=== PATIENT | male | born 1950 | race Caucasian/White ===

== ENCOUNTER 2019-02-01 21:19 | Observation (INO) ==
[2019-02-01] MEDS ORDERED: ONDANSETRON HCL/PF 2 MG/ML VIAL IV ONE (21:26)
--- NOTE | 2019-02-01 21:34 | ERNOTE ---
Abdominal HPI - General Chief Complaint: Abdominal Pain Time Seen by Provider: 02/01/19 21:19 Source: patient Exam Limitations: no limitations - Immun/Allergies/Home Medications Immunizatons: IMMUNIZATION HX Immunizations Up to Date Yes History of Influenza Vaccine No Hx Pneumococcal Vaccination No Allergies/Adverse Reactions: Allergies No Known Allergies Allergy (Unverified 02/01/19 21:29) Home Medications: HOME MEDICATIONS NK 02/01/19 [Last Taken Unknown] - History of Present Illness Narrative: Patient was working on an engine outside when he started to not feel well, felt dizzy, started to vomit and complains of abdominal pain patient is hyperventilating and unable/unwilling to give further history at this time Date (Duration): 02/01/19 Time (Timing): 20:30 Review of Systems - Review of Systems Constitutional: Absent: recent illness, fever ENT: Absent: nose congestion, sore throat Respiratory: Present: shortness of breath Cardiology: Absent: chest pain Gastrointestinal/Abdominal: Present: nausea, vomiting, abdominal pain. Absent: diarrhea Genitourinary: Present: no symptoms reported Musculoskeletal: Absent: back pain Neurological: Present: See HPI, dizziness/light-headedness. Absent: headache Medical History (Updated 02/02/19 @ 01:06 by Columba Jane MD) No pertinent family history Staph infection Surgical History: Surgical History (Updated 02/02/19 @ 01:06 by Columba Jane MD) History of ear surgery Hx of hand surgery Social History: Preferred Language Georgian Do you have any adventism or No cultural preference? Smoking Status Current every day smoker Have you smoked in the past 12 Yes months Do you dip or chew tobacco No Alcohol Use none Drug Use none No Social History Section defined Physical Exam - Physical Exam General Appearance: Present: wd/wn, alert, mild distress, anxious, other - unkept Head Exam: Present: normal inspection Eye Exam: Normal inspection: bilateral, PERRL: bilateral, EOMI: bilateral Ears, Nose, Throat: Present: normal ENT inspection, normal pharynx Neck: Present: normal inspection, nontender Respiratory: Present: no respiratory distress, normal breath sounds, no accessory muscle use, lungs clear Cardiovascular/Chest: Present: regular rate, rhythm, no murmur Gastrointestinal/Abdominal: Present: tenderness - diffusely Extremity Exam: Present: no edema Neurological Exam: Present: alert, no motor/sensory deficits Skin Exam: Present: normal color, warm/dry Progress - Results and Orders Patient's Lab Results:: I have reviewed the patient's lab results. - Vital Signs Patient's Vital Signs:: I have reviewed the patient's vital signs. Vital Signs: Vital Signs 02/01/19 21:24 Temperature 36.5 C Pulse Rate 88 Respiratory Rate 18 Blood Pressure 181/124 H O2 Sat by Pulse Oximetry 100 - EKG EKG #1 EKG: NSR, nonspecific ST T wave changes, other - no acute changes EKG read: Interp. by me - X-Ray X-Ray #1 X-Ray: abdomen - moderate fecal retention Interpretation: Reviewed by me - Progress/Reassessment Chief Complaint: Abdominal Pain Progress Note-Subjective: 02/01/19 22:50 patient calm and cooperative now states that he was working on an engine when he started to get suddenly dizzy/everything spinning and started to vomit he was unable to walk and crawled back to the house and his family brought him in. He thinks the abdominal pain is just from vomiting he is feeling much better now, no abdominal pain, no vomiting no dizziness with moving around and sitting up in bed neuro exam normal at this point he has not seen a doctor in over 20 years discussed labs with patient and family 02/02/19 00:15 patient calm, resting in bed, now admits to using meth 1-2 days ago second troponin slightly lower 02/02/19 00:20 discussed with ramon Sloan to admit for observation for acute renal failure and elevated troponin Departure Clinical Impression: Elevated troponin, Methamphetamine use Acute renal failure Qualifiers: Acute renal failure type: unspecified Qualified Code(s): N17.9 - Acute kidney failure, unspecified - Departure Disposition: Still a patient Condition: Stable
[2019-02-01 21:49] LABS: Hematocrit 41.5 % (42.0-52.0); Mean Cell Volume 87.7 fl (78-100); Mean Corpuscular Hemoglobin 29.6 pg (27-31); Mean Corpuscular Hgb Conc 33.7 g/dl (32-36); Mean Platelet Volume 8.8 fl (8-11.3); Neutrophil # 5.6 K/mm3 (1.3-6.0); Neutrophil % 57.4 % (42-75.0); Platelet Count 325 K/mm3 (150-450); Red Blood Count 4.73 M/mm3 (4.7-6.0); Red Cell Distribution Width 13.6 % (11.5-14.0); White Blood Count 9.8 K/mm3 (4.0-10.5)
[2019-02-01 22:07] LABS: ALT 22 U/L (19-67); AST 20 U/L (0-48); Albumin * 3.9 gm/dl (3.4-5.0); Alkaline Phosphatase * 61 U/L (50-170); Amylase * 66 U/L (25-115); Anion Gap 20.1 mmol/L (6.8-13.8); BUN/Creatinine Ratio 12.1 (9.0-21.6); Bilirubin, Total 0.4 mg/dL (0.0-1.1); Blood Urea Nitrogen 37 mg/dL (6-23); Ca. Corrected For Albumin 9.6 mg/dL (8.4-10.2); Calcium * 9.8 mg/dL (7.9-10.9); Carbon Dioxide 21.8 mmol/L (24-32.6); Chloride 104 mmol/L (97-106); Glucose * 151 mg/dL (70-110); Lipase 179 U/L (73-393); Potassium 3.9 mmol/L (3.4-4.6); Sodium 142 mmol/L (132-142)
[2019-02-01 22:08] LABS: Troponin I 0.357 ng/mL (0.00-0.10)
[2019-02-01 22:23] LABS: Urine Bilirubin 1 mg/dl (NEGATIVE); Urine Ketone 5 mg/dL (NEGATIVE); Urine Nitrite Negative (NEGATIVE); Urine Protein 30 mg/dL (NEGATIVE); Urine Specific Gravity >=1.030 SP.GR. (1.005-1.030); Urine Urobilinogen Normal (NORMAL); Urine pH 5.5 pH (5.0-7.0)
[2019-02-01 22:36] LABS: Cocaine Ur Negative (NEGATIVE); Urine Barbiturate Negative (NEGATIVE); Urine Benzodiazepines Negative (NEGATIVE); Urine Opiates Negative (NEGATIVE); Urine PCP Negative (NEGATIVE); Urine THC Negative (NEGATIVE)
[2019-02-01 22:39] LABS: Urine Appearance Slightly Cloudy (CLEAR); Urine Blood 5 /ul (NEGATIVE); Urine Color Yellow
[2019-02-01 22:42] LABS: Urine Bacteria TRACE; Urine RBC None Seen /hpf (0-5); Urine Renal Epithelial Cell Few - 1+ /hpf; Urine WBC 0-5 /hpf (0-5)
[2019-02-01] MEDS ORDERED: NORMAL SALINE 1,000 ML IV ONE (23:06)
[2019-02-02] MEDS ORDERED: NORMAL SALINE 1,000 ML IV PRN (02:34)
[2019-02-02 06:27] LABS: Albumin * 3.1 gm/dl (3.4-5.0); Anion Gap 12.9 mmol/L (6.8-13.8); Bilirubin, Total 0.3 mg/dL (0.0-1.1); Ca. Corrected For Albumin 8.8 mg/dL (8.4-10.2); Calcium * 8.4 mg/dL (7.9-10.9); Potassium 3.9 mmol/L (3.4-4.6); Total Protein 6.5 gm/dL (6.2-8.2)
[2019-02-02 06:39] LABS: BUN/Creatinine Ratio 15.8 (9.0-21.6)
--- NOTE | 2019-02-02 12:01 | HPDIS ---
Chief Complaint - Chief Complaint Date of Service: 02/02/19 Time of Service: 09:00 Chief Complaint: chest pain, dyspnea, R/o AMI. History of Present Illness: Crow Hubbard is a 68-year-old male who presented to the emergency room with left chest pain, shortness of breath, and nausea and vomiting and diaphoresis. Symptoms had cleared by the time he arrived in the emergency room. Exam there showed normal EKG except for occasional PACs but the troponin was elevated at 0.319. I repeated the troponin this morning and it had risen to 0.355. The repeat EKG shows T wave inversions in 1, aVL, V5, and V6. This morning he is symptom-free. His EGFR was 43 on admission and with some rehydration has risen to 50 this morning. Crow does not Dr. much of any. His last admission was a few years ago for a staph infection of his hand which was treated and cleared. He takes no medications. He does smoke and admits to using methamphetamine 2 days prior to arrival. He states he does not use that routinely but only once or twice a year. There is a positive family history for cardiovascular disease. He does not have hypertension and does not know about his lipids. He is not diabetic. He is a Medicare age but is only signed up for Medicare part a is he did not understand the Medicare part B side or part D side. He may be eligible for a medical card and that is being investigated now. He is advised that he will need further study but will probably be better if this done after his insurance is in force. Medical History (Updated 02/02/19 @ 01:06 by Columba Jane MD) No pertinent family history Staph infection Surgical History: Surgical History (Updated 02/02/19 @ 01:06 by Columba Jane MD) History of ear surgery Hx of hand surgery Social History: Patient Lives/Resources With Spouse Utilized Preferred Language Belarusian Do you have any advent or Yes: adventist cultural preference? Smoking Status Current every day smoker Have you smoked in the past 12 Yes months Do you dip or chew tobacco No Alcohol Use none Drug Use none No Social History Section defined Review Of Systems (GEN) - Review of Systems Generalized/Overall Review: Present: Weakness EENTM: Present: No Symptoms Reported Respiratory: Present: Shortness of Breath Cardiac: Present: Chest Pain, Palpitations, Other - Diaphoresis Abdominal: Present: Nausea, Vomiting Genitourinary: Present: No Symptoms Reported Musculoskeletal: Present: No Symptoms Reported Neurological: Present: No Symptoms Reported Skin: Present: No Symptoms Reported - Other than diaphoresis Endocrine: Present: No Symptoms Reported Misc: All systems neg except as marked Immunizations: IMMUNIZATION HX Immunizations Up to Date Yes History of Influenza Vaccine No Hx Pneumococcal Vaccination No Allergies/Adverse Reactions: Allergies Allergy/AdvReac Type Severity Reaction Status Date / Time No Known Allergies Allergy Verified 02/02/19 02:11 Home Medications: HOME MEDICATIONS Nitroglycerin 0.4 mg SUBLINGUAL Q5MIN PRN #25 tab.subl 02/02/19 [Last Taken Unknown] Exam - Exam Vital Signs: Vital Signs - Last Taken Temp 36.5 C 02/02/19 11:08 Pulse 76 02/02/19 11:08 Resp 20 02/02/19 11:08 BP 183/86 H 02/02/19 11:08 Pulse Ox 100 02/02/19 11:08 Constitutional: Present: Alert, Oriented x3, Cooperative, Well developed, Well nourished, Looks Older than stated age ENT Exam: Present: normal ENT inspection, hearing grossly normal, pharynx normal, TMs normal Eye Exam: bilateral eye: normal inspection, PERRL, EOMI Neck: Present: non-tender, full range of motion, supple, normal inspection, trachea midline Breasts: Present: Exam deferred Respiratory: Present: chest non-tender, lungs clear Cardiovascular/Chest: Present: normal peripheral pulses, regular rate, rhythm, no chest tenderness, no edema, no gallop, no JVD, no murmur, no rub, extra beats Peripheral Pulses: carotid (R): 2+, carotid (L): 2+, dorsalis-pedis (R): 2+, dorsalis-pedis (L): 2+, radial (R): 2+, radial (L): 2+ Abdomen: Present: Normal bowel sounds, soft, nontender, nondistended, no rebound tenderness, no hepatospenomegaly, no masses /Rectal: Present: Exam deferred Extremity: Present: normal range of motion Skin Exam: Present: normal color Lymphatic: Present: no adenopathy 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 nml as tested Appearance: Present: appropriate appearance Eye contact: Present: cooperative Thoughts: Present: normal thought pattern, no apparent hallucination Diagnostic Studies: Abnormal Lab Results 02/01/19 02/01/19 02/01/19 Range/Units 21:52 21:52 22:16 Hct 41.5 L (42.0-52.0) % Immature Gran # (Auto) 0.04 H (0.000-0.0310) K/mm3 Sodium (132-142) mmol/L Plasma Sodium 143 H (130-142) mmol/L Chloride (97-106) mmol/L Carbon Dioxide 21.8 L (24-32.6) mmol/L Anion Gap 20.1 H (6.8-13.8) mmol/L BUN 37 H (6-23) mg/dL Creatinine 3.06 H (0.4-1.4) mg/dL Est GFR (Non-Af Amer) 22 L (60-130) mL/min Random Glucose 151 H (70-110) mg/dL Troponin I 0.357 H* (0.00-0.10) ng/mL Albumin (3.4-5.0) gm/dl Urine Protein 30 H (NEGATIVE) mg/dL Urine Blood 5 H (NEGATIVE) /ul Urine Bilirubin 1 H (NEGATIVE) mg/dl Ur Renal Epithelial Cell Few - 1+ H (NONE) /hpf Hyaline Casts 5-10 H (NONE) /LPF Urine Amphetamine (NEGATIVE) 02/01/19 02/01/19 02/02/19 Range/Units 22:16 23:58 06:00 Hct (42.0-52.0) % Immature Gran # (Auto) (0.000-0.0310) K/mm3 Sodium 145 H (132-142) mmol/L Plasma Sodium 145 H (130-142) mmol/L Chloride 109 H (97-106) mmol/L Carbon Dioxide (24-32.6) mmol/L Anion Gap (6.8-13.8) mmol/L BUN 35 H (6-23) mg/dL Creatinine 2.22 H D (0.4-1.4) mg/dL Est GFR (Non-Af Amer) 32 L D (60-130) mL/min Random Glucose (70-110) mg/dL Troponin I 0.319 H* (0.00-0.10) ng/mL Albumin 3.1 L (3.4-5.0) gm/dl Urine Protein (NEGATIVE) mg/dL Urine Blood (NEGATIVE) /ul Urine Bilirubin (NEGATIVE) mg/dl Ur Renal Epithelial Cell (NONE) /hpf Hyaline Casts (NONE) /LPF Urine Amphetamine Positive H (NEGATIVE) 02/02/19 Range/Units 06:00 Hct (42.0-52.0) % Immature Gran # (Auto) (0.000-0.0310) K/mm3 Sodium (132-142) mmol/L Plasma Sodium (130-142) mmol/L Chloride (97-106) mmol/L Carbon Dioxide (24-32.6) mmol/L Anion Gap (6.8-13.8) mmol/L BUN (6-23) mg/dL Creatinine (0.4-1.4) mg/dL Est GFR (Non-Af Amer) (60-130) mL/min Random Glucose (70-110) mg/dL Troponin I 0.352 H* (0.00-0.10) ng/mL Albumin (3.4-5.0) gm/dl Urine Protein (NEGATIVE) mg/dL Urine Blood (NEGATIVE) /ul Urine Bilirubin (NEGATIVE) mg/dl Ur Renal Epithelial Cell (NONE) /hpf Hyaline Casts (NONE) /LPF Urine Amphetamine (NEGATIVE) Laboratory Results WBC 9.8 K/mm3 (4.0-10.5) 02/01/19 21:52 RBC 4.73 M/mm3 (4.7-6.0) 02/01/19 21:52 Hgb 14.0 gm/dL (13.5-18.0) 02/01/19 21:52 Hct 41.5 % (42.0-52.0) L 02/01/19 21:52 MCV 87.7 fl (78-100) 02/01/19 21:52 MCH 29.6 pg (27-31) 02/01/19 21:52 MCHC 33.7 g/dl (32-36) 02/01/19 21:52 RDW 13.6 % (11.5-14.0) 02/01/19 21:52 Plt Count 325 K/mm3 (150-450) 02/01/19 21:52 MPV 8.8 fl (8-11.3) 02/01/19 21:52 Immature Gran % (Auto) 0.40 % (0.001-0.429) 02/01/19 21:52 Immature Gran # (Auto) 0.04 K/mm3 (0.000-0.0310) H 02/01/19 21:52 57.4 % (42-75.0) 02/01/19 21:52 32.1 % (20-51) 02/01/19 21:52 6.6 % (0.0-9) 02/01/19 21:52 2.9 % (0.0-3.0) 02/01/19 21:52 0.6 % (0.0-1.0) 02/01/19 21:52 Nucleated RBC % 0.0 k/mm3 (0-1) 02/01/19 21:52 5.6 K/mm3 (1.3-6.0) 02/01/19 21:52 3.15 k/mm3 (1.5-3.5) 02/01/19 21:52 0.7 k/mm3 (0.0-1.0) 02/01/19 21:52 0.3 k/mm3 (0.0-0.7) 02/01/19 21:52 Absolute Basophils 0.1 k/mm3 (0.0-0.1) 02/01/19 21:52 Sodium 145 mmol/L (132-142) H 02/02/19 06:00 145 mmol/L (130-142) H 02/02/19 06:00 Potassium 3.9 mmol/L (3.4-4.6) 02/02/19 06:00 Chloride 109 mmol/L (97-106) H 02/02/19 06:00 Carbon Dioxide 27.0 mmol/L (24-32.6) 02/02/19 06:00 12.9 mmol/L (6.8-13.8) 02/02/19 06:00 BUN 35 mg/dL (6-23) H 02/02/19 06:00 2.22 mg/dL (0.4-1.4) H D 02/02/19 06:00 Est GFR (Non-Af Amer) 32 mL/min (60-130) L D 02/02/19 06:00 15.8 (9.0-21.6) 02/02/19 06:00 107 mg/dL (70-110) 02/02/19 06:00 Calcium 8.4 mg/dL (7.9-10.9) 02/02/19 06:00 Calcium Adj for Albumin 8.8 mg/dL (8.4-10.2) 02/02/19 06:00 0.3 mg/dL (0.0-1.1) 02/02/19 06:00 AST 18 U/L (0-48) 02/02/19 06:00 ALT 20 U/L (19-67) 02/02/19 06:00 56 U/L (50-170) 02/02/19 06:00 0.352 ng/mL (0.00-0.10) H* 02/02/19 06:00 6.5 gm/dL (6.2-8.2) 02/02/19 06:00 3.1 gm/dl (3.4-5.0) L 02/02/19 06:00 Amylase 66 U/L (25-115) 02/01/19 21:52 179 U/L (73-393) 02/01/19 21:52 Yellow 02/01/19 22:16 Slightly cloudy (CLEAR) 02/01/19 22:16 5.5 pH (5.0-7.0) 02/01/19 22:16 Ur Specific [place] >=1.030 SP.GR. (1.005-1.030) 02/01/19 22:16 30 mg/dL (NEGATIVE) H 02/01/19 22:16 Negative mg/dL (NEGATIVE) 02/01/19 22:16 5 mg/dL (NEGATIVE) 02/01/19 22:16 5 /ul (NEGATIVE) H 02/01/19 22:16 Negative (NEGATIVE) 02/01/19 22:16 1 mg/dl (NEGATIVE) H 02/01/19 22:16 Negative (NEGATIVE) 02/01/19 22:16 Prot Sulfosalicylic Acd 1+ mg/dL (0) 02/01/19 22:16 Normal EU/dl (NORMAL) 02/01/19 22:16 Ur Leukocyte Esterase Negative /ul (NEGATIVE) 02/01/19 22:16 None seen /hpf (0-5) 02/01/19 22:16 0-5 /hpf (0-5) 02/01/19 22:16 Ur Epithelial Cells 0-5 /hpf (0-5) 02/01/19 22:16 Ur Renal Epithelial Cell Few - 1+ /hpf (NONE) H 02/01/19 22:16 Trace (NONE) 02/01/19 22:16 Hyaline Casts 5-10 /LPF (NONE) H 02/01/19 22:16 No culture indicated 02/01/19 22:16 Negative (NEGATIVE) 02/01/19 22:16 Negative (NEGATIVE) 02/01/19 22:16 Ur Phencyclidine Scrn Negative (NEGATIVE) 02/01/19 22:16 Urine Amphetamine Positive (NEGATIVE) H 02/01/19 22:16 U Benzodiazepines Scrn Negative (NEGATIVE) 02/01/19 22:16 Negative (NEGATIVE) 02/01/19 22:16 Negative (NEGATIVE) 02/01/19 22:16 Ethyl Alcohol Less than 3.0 mg/dL (0.0-10.0) 02/01/19 21:52 Assessment/Plan - Narrative Narrative: Crow probably had a non-STEMI cardiac event at home. My arrival in the emergency room most of the symptoms had resolved. Initial evaluation does not show ST segment changes consistent with an injury pattern but the troponin was elevated. The second troponin went down slightly to 0.319 but then went back up 0.355 this morning. There are subtle EKG changes including T wave inversion in leads I, aVL, V5, and V6 and nonspecific ST changes otherwise. He is in normal sinus rhythm with occasional PACs. This morning he is symptom-free and feels like he needs to get home to his who is a patient of mine and who has had a stroke recently. I will let him go home with instructions to return with any signs of chest discomfort. Also he is instructed not to smoke or use any more methamphetamine ever. He is to see me in the office in 1 week. I will arrange for a stress test to be done at that time. I will send him home with some nitroglycerin sublingual tabs for as needed use. - Assessment/Plan (1) Non-STEMI (non-ST elevated myocardial infarction) Problem: Acute (2) Acute renal failure Problem: Acute Qualifiers: Acute renal failure type: unspecified Qualified Code(s): N17.9 - Acute kidney failure, unspecified (3) Elevated troponin Problem: Acute (1) Non-STEMI (non-ST elevated myocardial infarction) Problem: Acute (2) Acute renal failure Problem: Acute Qualifiers: Acute renal failure type: unspecified Qualified Code(s): N17.9 - Acute kidney failure, unspecified (3) Elevated troponin Problem: Acute Description of Stay: Crow has been comfortable since admission. He is anxious about getting home to care for his . I have explained to him the lab and troponin findings as well as the EKG changes and it all suggest that he has had a non-STEMI event. However he is stable and there have been no significant dysrhythmias. Therefore he will be discharged home to follow with me in the office in 1 week at which time I will schedule a stress test. I will also send him home with nitroglycerin for as needed use. Procedures Performed: none Results and Findings: Lab Pending Results 02/01/19 21:52: WBC 9.8, RBC 4.73, Hgb 14.0, Hct 41.5 L, MCV 87.7, MCH 29.6, MCHC 33.7, RDW 13.6, Plt Count 325, MPV 8.8, Immature Gran % (Auto) 0.40, Immature Gran # (Auto) 0.04 H, Neutrophils % 57.4, Lymphocytes % 32.1, Monocytes % 6.6, Eosinophils % 2.9, Basophils % 0.6, Nucleated RBC % 0.0, Neutrophils # 5.6, Lymphocytes # 3.15, Monocytes # 0.7, Eosinophils # 0.3, Absolute Basophils 0.1 02/01/19 21:52: Sodium 142, Plasma Sodium 143 H, Potassium 3.9, Chloride 104, Carbon Dioxide 21.8 L, Anion Gap 20.1 H, BUN 37 H, Creatinine 3.06 H, Est GFR (Non-Af Amer) 22 L, BUN/Creatinine Ratio 12.1, Random Glucose 151 H, Calcium 9.8, Calcium Adj for Albumin 9.6, Total Bilirubin 0.4, AST 20, ALT 22, Alkaline Phosphatase 61, Troponin I 0.357 H*, Total Protein 8.0, Albumin 3.9, Amylase 66, Lipase 179, Ethyl Alcohol Less than 3.0 02/01/19 22:16: Urine Color Yellow, Urine Appearance Slightly cloudy, Urine pH 5.5, Ur Specific [place] >=1.030, Urine Protein 30 H, Urine Glucose (UA) Negative, Urine Ketones 5, Urine Blood 5 H, Urine Nitrate Negative, Urine Bilir ubin 1 H, Urine Ictotest Negative, Prot Sulfosalicylic Acd 1+, Urine Urobilinogen Normal, Ur Leukocyte Esterase Negative, Urine RBC None seen, Urine WBC 0-5, Ur Epithelial Cells 0-5, Ur Renal Epithelial Cell Few - 1+ H, Urine Bacteria Trace, Hyaline Casts 5-10 H, Urine Culture Comments No culture indicated 02/01/19 22:16: Urine Opiates Screen Negative, Barbiturate Screen Negative, Ur Phencyclidine Scrn Negative, Urine Amphetamine Positive H, U Benzodiazepines Scrn Negative, Urine Cocaine Screen Negative, Urine Marijuana (THC) Negative 02/01/19 23:58: Troponin I 0.319 H* 02/02/19 06:00: Sodium 145 H, Plasma Sodium 145 H, Potassium 3.9, Chloride 109 H, Carbon Dioxide 27.0, Anion Gap 12.9, BUN 35 H, Creatinine 2.22 H D, Est GFR (Non-Af Amer) 32 L D, BUN/Creatinine Ratio 15.8, Random Glucose 107, Calcium 8.4, Calcium Adj for Albumin 8.8, Total Bilirubin 0.3, AST 18, ALT 20, Alkaline Phosphatase 56, Total Protein 6.5, Albumin 3.1 L 02/02/19 06:00: Troponin I 0.352 H* Discharge Location: Home Disposition: Home self-care Condition: Stable Discharge Activity: Activity as tolerated - But I recommend being sedentary. Discharge Diet: Other - Heart healthy diet Additional Patient Instructions (free text): 1. Return to the emergency room if any further chest discomfort or unusual shortness of breath. 2. Stop smoking 3. Never used methamphetamine again. It is probably what precipitated this cardiac event. 4. Schedule to see me in my office in 1 week. 5. Try to get insurance and force so that more testing can be done without exposing him to a large [id number] expense 6.-Please make TCM appointment unless jail discharge, or if following up with outside provider. Thank you! Estephania @ [phone] or Krys at [phone]. Prescriptions (Any new or edited meds): Nitroglycerin 0.4 mg SUBLINGUAL Q5MIN PRN #25 tab.subl PRN Reason: Chest Pain Complete Home Medications List: Complete Home Medication List: Nitroglycerin 0.4 mg SUBLINGUAL Q5MIN PRN #25 tab.subl 02/02/19
[2019-02-02 13:31] VITALS: BP 166/84
== END 2019-02-02 13:55 | disposition home or self-care (01) ==
LOC: MS 21:19 → ER 21:19 → MS 02-02 01:21
PROVIDERS: ADMIT Family Medicine; ATTEND Family Medicine
DX: R74.8 Abnormal levels of other serum enzymes; I21.4 Non-ST elevation (NSTEMI) myocardial infarction; N17.9 Acute kidney failure, unspecified
CPT/HCPCS: 36415; 74019; 74020; 80053; 80307; 80320; 81001; 82150; 83690; 84484; 85025; 87081; 93005; 96361; 96374; 99285; G0378; G0481; J2405